=== PATIENT | male | born 1965 | race Caucasian/White ===

== ENCOUNTER 2019-01-22 09:03 | Emergency (ER) | payer SELFPAY ==
[2019-01-22] MEDS: ALBUTEROL 0.5% (NEB) 2.5 MG/0.5 ML AMP INH (09:59)
[2019-01-22] MEDS: IPRATROPIUM (NEB) 0.5 MG/2.5 ML AMP NEB (09:59)
== END 2019-01-22 10:37 | disposition home or self-care (01) ==
LOC: FTE 09:03
DX: J45.40 Moderate persistent asthma, uncomplicated (principal); I10 Essential (primary) hypertension; Z76.0 Encounter for issue of repeat prescription; Z79.84 Long term (current) use of oral hypoglycemic drugs
CPT/HCPCS: 94644; 99283-25